=== PATIENT | male | born 1980 | race Caucasian/White ===

== ENCOUNTER 2016-08-17 09:28 | Emergency (ER) | payer OTHER ==
[2016-08-17 10:57] LABS: ALKALINE PHOSPHATASE 70 U/L (50-136); ALT/SGPT 27 U/L (7.53-40.17); AST/SGOT 26 U/L (6.66-35.34); BILIRUBIN,TOTAL 0.32 mg/dL (0.0-1.0); BLOOD UREA NITROGEN 13 mg/dL (7-18); CALCIUM 8.9 mg/dL (8.7-10.7); CARBON DIOXIDE 25 mmol/L (21-32); CREATININE 0.9 mg/dL (0.6-1.3); GLUCOSE,RANDOM 107 mg/dL (70-99); SODIUM 136 mmol/L (136-145); TOTAL PROTEIN 7.6 gm/dL (6.4-8.2)
== END 2016-08-17 11:20 | disposition home or self-care (01) ==
LOC: ER 09:28
PROVIDERS: General Practice
DX: Z03.89 Encounter for observation for other suspected diseases and conditions ruled out (principal); R44.3 Hallucinations, unspecified; F17.210 Nicotine dependence, cigarettes, uncomplicated
CPT/HCPCS: 36415; 80053; 80307; 99283